=== PATIENT | male | born 1950 | race Caucasian/White ===

== ENCOUNTER 2024-01-26 13:29 | Outpatient (CLI) | payer MEDICARE, BC, SELFPAY ==
--- OUTSIDE RECORDS SUMMARY | 2024-02-03 09:17 | XMS_ITS | Continuity of Care Document ---
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 It does not include entries that were removed or entered in error. Problem Status Onset Date Problem Type Date of Resolution Comments Source Alcohol abuse Active Condition [facility] Elevated blood pressure reading without diagnosis of hypertension Active Condition Dec 21, 2022 Entered By: KATHY JUAREZ Comment: White coat hypertension. BP consistently at goal at home. [facility] - Hyperlipidemia Active Condition [facility] Tremor Active Condition [facility] Diagnosis: ICD-10-CM G25.0 Essential tremor Active Diagnosis [facility] Diagnosis: ICD-10-CM Z00.01 Encounter for general adult medical exam w abnormal findings Active Diagnosis [facility] Diagnosis: ICD-10-CM R03.0 Elevated blood-pressure reading, w/o diagnosis of htn Active Diagnosis [facility] Diagnosis: ICD-10-CM H90.3 Sensorineural hearing loss, bilateral Active Diagnosis [facility] Diagnosis: ICD-10-CM C44.319 Basal cell carcinoma of skin of other parts of face Active Diagnosis [facility] Medications Combined list of outpatient medications from [facility] and [facility] facilities.Medications provided include 1) outpatient medications from the last 15 months, and 2) patient-reported medications. Medication Details Route Status Patient Instructions Prescription Expires Prescription Number Last Dispense Date Ordering Provider Order Date Order Qty Source PROPRANOLOL HCL 120MG CAP,SA TAKE ONE CAPSULE BY MOUTH EVERY MORNING FOR TREMOR ORALLY DISCONT INUED 03/19/2024 [id number] Amaury RO 2022 90 [facility] PROPRANOLOL HCL 120MG CAP,SA TAKE ONE CAPSULE BY MOUTH EVERY MORNING FOR TREMOR ORALLY DISCONT INUED 09/21/2023 [id number] Amaury RO 2022 90 [facility] Immunizations Combined list of available immunizations from the [facility] of [facility] and [facility] facilities. Immunization Series Date Given Administered By Site Reaction Lot Number CVX Code Drug Last Model Department Supervisor Status Comments Source COVID-19 (MODERNA), MRNA, LNP-S, PF, 100 MCG/0.5ML DOSE OR 50 MCG/0.25ML DOSE 2 2020 207 complet ed [facility] COVID-19 (MODERNA), MRNA, LNP-S, PF, 100 MCG/0.5ML DOSE OR 50 MCG/0.25ML DOSE 1 2020 207 complet ed [facility] Results Combined list of recent chemistry, hematology and other laboratory results from [facility] and [facility], ranging from 15 months to all on record, depending upon the facility. Order Name Results Value Reference Range Date Interpretation Specimen Comments Source COMPREHE NSIVE METABOLI C PANEL+MG CREATININE [MASS/VOLU ME] IN SERUM OR PLASMA 0.9 0.7 - 1.2 12/21 Specimen Type: PLASMA No comment entered. Ordering Provider: AKTHY JUAREZ Report Released Date/Time: Nov 16, 2022 03:22 PM Reporting Lab: [facility] [address] Performing Lab: [facility] [address] [facility] COMPREHE NSIVE METABOLI C PANEL+MG UREA NITROGEN [MASS/VOLU ME] IN SERUM OR PLASMA 12 8 - 26 12/21 Specimen Type: PLASMA No comment entered. Ordering Provider: KATHY JUAREZ Report Released Date/Time: Nov 16, 2022 03:22 PM Reporting Lab: [facility] [address] Performing Lab: [facility] [address] [place] [facility] COMPREHE NSIVE METABOLI C PANEL+MG GLUCOSE [MASS/VOLU ME] IN SERUM OR PLASMA 91 70 - 100 12/21 Specimen Type: PLASMA No comment entered. Ordering Provider: KATHY JUAREZ Report Released Date/Time: Nov 16, 2022 03:22 PM Reporting Lab: [facility] [address] Performing Lab: [facility] [address] [place] [facility] COMPREHE NSIVE METABOLI C PANEL+MG SODIUM [MOLES/VOL UME] IN SERUM OR PLASMA 139 136 - 145 12/21 Specimen Type: PLASMA No comment entered. Ordering Provider: KATHY JUAREZ Report Released Date/Time: Nov 16, 2022 03:22 PM Reporting Lab: [facility] [address] Performing Lab: [facility] [address] [place] [facility] COMPREHE NSIVE METABOLI C PANEL+MG POTASSIUM [MOLES/VOL UME] IN SERUM OR PLASMA 4.0 3.5 - 5.1 12/21 Specimen Type: PLASMA No comment entered. Ordering Provider: KATHY JUAREZ Report Released Date/Time: Nov 16, 2022 03:22 PM Reporting Lab: [facility] [address] Performing Lab: [facility] [address] [place] [facility] COMPREHE NSIVE METABOLI C PANEL+MG CHLORIDE [MOLES/VOL UME] IN SERUM OR PLASMA 105 98 - 107 12/21 Specimen Type: PLASMA No comment entered. Ordering Provider: KATHY JUAREZ Report Released Date/Time: Nov 16, 2022 03:22 PM Reporting Lab: [facility] [address] Performing Lab: [facility] [address] [place] [facility] COMPREHE NSIVE METABOLI C PANEL+MG CARBON DIOXIDE, TOTAL [MOLES/VOL UME] IN SERUM OR PLASMA 25 22 - 29 12/21 Specimen Type: PLASMA No comment entered. Ordering Provider: KATHY JUAREZ Report Released Date/Time: Nov 16, 2022 03:22 PM Reporting Lab: [facility] [address] Performing Lab: [facility] [address] [place] [facility] COMPREHE NSIVE METABOLI C PANEL+MG CALCIUM [MASS/VOLU ME] IN SERUM OR PLASMA 10.0 8.4 - 10.2 12/21 Specimen Type: PLASMA No comment entered. Ordering Provider: KATHY JUAREZ Report Released Date/Time: Nov 16, 2022 03:22 PM Reporting Lab: [facility] [address] Performing Lab: [facility] [address] [place] [facility] COMPREHE NSIVE METABOLI C PANEL+MG PROTEIN [MASS/VOLU ME] IN SERUM OR PLASMA 7.0 6.0 - 8.3 12/21 Specimen Type: PLASMA No comment entered. Ordering Provider: KATHY JUAREZ Report Released Date/Time: Nov 16, 2022 03:22 PM Reporting Lab: [facility] [address] Performing Lab: [facility] [address] [place] [facility] COMPREHE NSIVE METABOLI C PANEL+MG ALBUMIN [MASS/VOLU ME] IN SERUM OR PLASMA 4.1 3.5 - 5.2 12/21 Specimen Type: PLASMA No comment entered. Ordering Provider: KATHY JUAREZ Report Released Date/Time: Nov 16, 2022 03:22 PM Reporting Lab: [facility] [address] Performing Lab: [facility] [address] [place] [facility] COMPREHE NSIVE METABOLI C PANEL+MG BILIRUBIN. TOTAL [MASS/VOLU ME] IN SERUM OR PLASMA 0.9 0.2 - 1.2 12/21 Specimen Type: PLASMA No comment entered. Ordering Provider: KATHY JUAREZ Report Released Date/Time: Nov 16, 2022 03:22 PM Reporting Lab: [facility] [address] Performing Lab: [facility] [address] [place] [facility] COMPREHE NSIVE METABOLI C PANEL+MG MAGNESIUM [MASS/VOLU ME] IN SERUM OR PLASMA 2.0 1.6 - 2.6 12/21 Specimen Type: PLASMA No comment entered. Ordering Provider: KATHY JUAREZ Report Released Date/Time: Nov 16, 2022 03:22 PM Reporting Lab: [facility] [address] Performing Lab: [facility] [address] [place] [facility] COMPREHE NSIVE METABOLI C PANEL+MG ANION GAP IN SERUM OR PLASMA 9 5 - 15 12/21 Specimen Type: PLASMA No comment entered. Ordering Provider: KATHY JUAREZ Report Released Date/Time: Nov 16, 2022 03:22 PM Reporting Lab: [facility] [address] Performing Lab: [facility] [address] [place] [facility] COMPREHE NSIVE METABOLI C PANEL+MG ALKALINE PHOSPHATAS E [ENZYMATIC ACTIVITY/V OLUME] IN SERUM OR PLASMA 97 40 - 150 12/21 Specimen Type: PLASMA No comment entered. Ordering Provider: KATHY JUAREZ Report Released Date/Time: Nov 16, 2022 03:22 PM Reporting Lab: [facility] [address] Performing Lab: [facility] [address] [place] [facility] COMPREHE NSIVE METABOLI C PANEL+MG ALANINE AMINOTRANS FERASE [ENZYMATIC ACTIVITY/V OLUME] IN SERUM OR PLASMA 30 <55 - 55 12/21 Specimen Type: PLASMA No comment entered. Ordering Provider: KATHY JUAREZ Report Released Date/Time: Nov 16, 2022 03:22 PM Reporting Lab: [facility] [address] Performing Lab: [facility] [address] [place] [facility] COMPREHE NSIVE METABOLI C PANEL+MG ASPARTATE AMINOTRANS FERASE [ENZYMATIC ACTIVITY/V OLUME] IN SERUM OR PLASMA 38 <34 - 34 12/21 H Specimen Type: PLASMA No comment entered. Ordering Provider: KATHY JUAREZ Report Released Date/Time: Nov 16, 2022 03:22 PM Reporting Lab: [facility] [address] Performing Lab: [facility] [address] [place] [facility] COMPREHE NSIVE METABOLI C PANEL+MG GLOMERULAR FILTRATION RATE/1.73 SQ M.PREDICTE D [VOLUME RATE/AREA] IN SERUM, PLASMA OR BLOOD BY CREATININE -BASED FORMULA (CKD-EPI) 90 60 12/21 Specimen Type: PLASMA No comment entered. Ordering Provider: KATHY JUAREZ Report Released Date/Time: Nov 16, 2022 03:22 PM Reporting Lab: [facility] [address] Performing Lab: [facility] [address] [place] [facility] AST/SGOT ASPARTATE AMINOTRANS FERASE [ENZYMATIC ACTIVITY/V OLUME] IN SERUM OR PLASMA 47 <34 - 34 11/16 H Specimen Type: PLASMA No comment entered. Ordering Provider: JULIO PELLETIER Report Released Date/Time: May 16, 2022 05:04 PM Reporting Lab: [facility] [address] Performing Lab: [facility] [address] [place] [facility] ALT/SGPT ALANINE AMINOTRANS FERASE [ENZYMATIC ACTIVITY/V OLUME] IN SERUM OR PLASMA 40 <55 - 55 11/16 Specimen Type: PLASMA No comment entered. Ordering Provider: JULIO PELLETIER Report Released Date/Time: May 16, 2022 05:04 PM Reporting Lab: [facility] [address] Performing Lab: [facility] [address] [place] [facility] GAMMA GTP GAMMA GLUTAMYL TRANSFERAS E [ENZYMATIC ACTIVITY/V OLUME] IN SERUM OR PLASMA 69 <64 - 64 11/16 H Specimen Type: PLASMA No comment entered. Ordering Provider: JULIO PELLETIER Report Released Date/Time: May 16, 2022 05:04 PM Reporting Lab: [facility] [address] Performing Lab: [facility] [address] [place] [facility] OCCULT BLOOD FIT X1 SCREEN HEMOGLOBIN .GASTROINT ESTINAL.LO WER [PRESENCE] IN STOOL BY IMMUNOASSA Y --1ST SPECIMEN Negative 05/21 Specimen Type: FECES No comment entered. Ordering Provider: JULIO PELLETIER Report Released Date/Time: May 16, 2022 03:08 PM Reporting Lab: [facility] [address] Performing Lab: [facility] [address] [place] [facility] COMPREHE NSIVE METABOLI C PANEL+MG CREATININE [MASS/VOLU ME] IN SERUM OR PLASMA 0.9 0.7 - 1.2 05/16 Specimen Type: PLASMA No comment entered. Ordering Provider: JULIO PELLETIER Report Released Date/Time: May 16, 2022 03:08 PM Reporting Lab: [facility] [address] Performing Lab: [facility] [address] [place] [facility] COMPREHE NSIVE METABOLI C PANEL+MG UREA NITROGEN [MASS/VOLU ME] IN SERUM OR PLASMA 9 8 - 26 05/16 Specimen Type: PLASMA No comment entered. Ordering Provider: JULIO PELLETIER Report Released Date/Time: May 16, 2022 03:08 PM Reporting Lab: [facility] [address] Performing Lab: [facility] [address] [place] [facility] COMPREHE NSIVE METABOLI C PANEL+MG GLUCOSE [MASS/VOLU ME] IN SERUM OR PLASMA 101 70 - 100 05/16 H Specimen Type: PLASMA No comment entered. Ordering Provider: JULIO PELLETIER Report Released Date/Time: May 16, 2022 03:08 PM Reporting Lab: [facility] [address] Performing Lab: [facility] [address] [place] [facility] COMPREHE NSIVE METABOLI C PANEL+MG SODIUM [MOLES/VOL UME] IN SERUM OR PLASMA 138 136 - 145 05/16 Specimen Type: PLASMA No comment entered. Ordering Provider: JULIO PELLETIER Report Released Date/Time: May 16, 2022 03:08 PM Reporting Lab: [facility] [address] Performing Lab: [facility] [address] [place] [facility] COMPREHE NSIVE METABOLI C PANEL+MG POTASSIUM [MOLES/VOL UME] IN SERUM OR PLASMA 4.1 3.5 - 5.1 05/16 Specimen Type: PLASMA No comment entered. Ordering Provider: JULIO PELLETIER Report Released Date/Time: May 16, 2022 03:08 PM Reporting Lab: [facility] [address] Performing Lab: [facility] [address] [place] [facility] COMPREHE NSIVE METABOLI C PANEL+MG CHLORIDE [MOLES/VOL UME] IN SERUM OR PLASMA 101 98 - 107 05/16 Specimen Type: PLASMA No comment entered. Ordering Provider: JULIO PELLETIER Report Released Date/Time: May 16, 2022 03:08 PM Reporting Lab: [facility] [address] Performing Lab: [facility] [address] [place] [facility] COMPREHE NSIVE METABOLI C PANEL+MG CARBON DIOXIDE, TOTAL [MOLES/VOL UME] IN SERUM OR PLASMA 25 22 - 29 05/16 Specimen Type: PLASMA No comment entered. Ordering Provider: JULIO PELLETIER Report Released Date/Time: May 16, 2022 03:08 PM Reporting Lab: [facility] [address] Performing Lab: [facility] [address] [place] [facility] COMPREHE NSIVE METABOLI C PANEL+MG CALCIUM [MASS/VOLU ME] IN SERUM OR PLASMA 10.1 8.4 - 10.2 05/16 Specimen Type: PLASMA No comment entered. Ordering Provider: JULIO PELLETIER Report Released Date/Time: May 16, 2022 03:08 PM Reporting Lab: [facility] [address] Performing Lab: [facility] [address] [place] [facility] COMPREHE NSIVE METABOLI C PANEL+MG PROTEIN [MASS/VOLU ME] IN SERUM OR PLASMA 7.6 6.0 - 8.3 05/16 Specimen Type: PLASMA No comment entered. Ordering Provider: JULIO PELLETIER Report Released Date/Time: May 16, 2022 03:08 PM Reporting Lab: [facility] [address] Performing Lab: [facility] [address] [place] [facility] COMPREHE NSIVE METABOLI C PANEL+MG ALBUMIN [MASS/VOLU ME] IN SERUM OR PLASMA 4.5 3.5 - 5.2 05/16 Specimen Type: PLASMA No comment entered. Ordering Provider: JULIO PELLETIER Report Released Date/Time: May 16, 2022 03:08 PM Reporting Lab: [facility] [address] Performing Lab: [facility] [address] [place] [facility] COMPREHE NSIVE METABOLI C PANEL+MG BILIRUBIN. TOTAL [MASS/VOLU ME] IN SERUM OR PLASMA 1.2 0.2 - 1.2 05/16 Specimen Type: PLASMA No comment entered. Ordering Provider: JULIO PELLETIER Report Released Date/Time: May 16, 2022 03:08 PM Reporting Lab: [facility] [address] Performing Lab: [facility] [address] [place] [facility] COMPREHE NSIVE METABOLI C PANEL+MG MAGNESIUM [MASS/VOLU ME] IN SERUM OR PLASMA 2.0 1.6 - 2.6 05/16 Specimen Type: PLASMA No comment entered. Ordering Provider: JULIO PELLETIER Report Released Date/Time: May 16, 2022 03:08 PM Reporting Lab: [facility] [address] Performing Lab: [facility] [address] [place] [facility] COMPREHE NSIVE METABOLI C PANEL+MG ANION GAP IN SERUM OR PLASMA 12 5 - 15 05/16 Specimen Type: PLASMA No comment entered. Ordering Provider: JULIO PELLETIER Report Released Date/Time: May 16, 2022 03:08 PM Reporting Lab: [facility] [address] Performing Lab: [facility] [address] [place] [facility] COMPREHE NSIVE METABOLI C PANEL+MG ALKALINE PHOSPHATAS E [ENZYMATIC ACTIVITY/V OLUME] IN SERUM OR PLASMA 99 40 - 150 05/16 Specimen Type: PLASMA No comment entered. Ordering Provider: JULIO PELLETIER Report Released Date/Time: May 16, 2022 03:08 PM Reporting Lab: [facility] [address] Performing Lab: [facility] [address] [place] [facility] COMPREHE NSIVE METABOLI C PANEL+MG ALANINE AMINOTRANS FERASE [ENZYMATIC ACTIVITY/V OLUME] IN SERUM OR PLASMA 54 <55 - 55 05/16 Specimen Type: PLASMA No comment entered. Ordering Provider: JULIO PELLETIER Report Released Date/Time: May 16, 2022 03:08 PM Reporting Lab: [facility] [address] Performing Lab: [facility] [address] [place] [facility] COMPREHE NSIVE METABOLI C PANEL+MG ASPARTATE AMINOTRANS FERASE [ENZYMATIC ACTIVITY/V OLUME] IN SERUM OR PLASMA 53 <34 - 34 05/16 H Specimen Type: PLASMA No comment entered. Ordering Provider: JULIO PELLETIER Report Released Date/Time: May 16, 2022 03:08 PM Reporting Lab: [facility] [address] Performing Lab: [facility] [address] [place] [facility] COMPREHE NSIVE METABOLI C PANEL+MG GLOMERULAR FILTRATION RATE/1.73 SQ M.PREDICTE D [VOLUME RATE/AREA] IN SERUM, PLASMA OR BLOOD BY CREATININE -BASED FORMULA (CKD-EPI) 90 60 05/16 Specimen Type: PLASMA No comment entered. Ordering Provider: JULIO PELLETIER Report Released Date/Time: May 16, 2022 03:08 PM Reporting Lab: [facility] [address] Performing Lab: [facility] [address] [facility] CBC & DIFF LEUKOCYTES [#/VOLUME] IN BLOOD BY AUTOMATED COUNT 8.05 4.0 - 11.0 05/16 Specimen Type: BLOOD Comment: Automated Differentia l Performed Ordering Provider: JULIO PELLETIER Report Released Date/Time: May 16, 2022 03:08 PM Reporting Lab: [facility] [address] Performing Lab: [facility] [address] [place] [facility] CBC & DIFF ERYTHROCYT ES [#/VOLUME] IN BLOOD BY AUTOMATED COUNT 5.05 4.6 - 6.2 05/16 Specimen Type: BLOOD Comment: Automated Differentia l Performed Ordering Provider: JULIO PELLETIER Report Released Date/Time: May 16, 2022 03:08 PM Reporting Lab: [facility] [address] Performing Lab: [facility] [address] [place] [facility] CBC & DIFF HEMOGLOBIN [MASS/VOLU ME] IN BLOOD 17.5 13.5 - 17.9 05/16 Specimen Type: BLOOD Comment: Automated Differentia l Performed Ordering Provider: JULIO PELLETIER Report Released Date/Time: May 16, 2022 03:08 PM Reporting Lab: [facility] [address] Performing Lab: [facility] [address] [place] [facility] CBC & DIFF HEMATOCRIT [VOLUME FRACTION] OF BLOOD BY AUTOMATED COUNT 49.1 41 - 54 05/16 Specimen Type: BLOOD Comment: Automated Differentia l Performed Ordering Provider: JULIO PELLETIER Report Released Date/Time: May 16, 2022 03:08 PM Reporting Lab: [facility] [address] Performing Lab: [facility] [address] [place] [facility] CBC & DIFF MCV [ENTITIC VOLUME] BY AUTOMATED COUNT 97.2 80 - 100 05/16 Specimen Type: BLOOD Comment: Automated Differentia l Performed Ordering Provider: JULIO PELLETIER Report Released Date/Time: May 16, 2022 03:08 PM Reporting Lab: [facility] [address] Performing Lab: [facility] [address] [place] [facility] CBC & DIFF MCH [ENTITIC MASS] BY AUTOMATED COUNT 34.7 27 - 33 05/16 H Specimen Type: BLOOD Comment: Automated Differentia l Performed Ordering Provider: JULIO PELLETIER Report Released Date/Time: May 16, 2022 03:08 PM Reporting Lab: [facility] [address] Performing Lab: [facility] [address] [place] [facility] CBC & DIFF MCHC [MASS/VOLU ME] BY AUTOMATED COUNT 35.6 32.0 - 37.5 05/16 Specimen Type: BLOOD Comment: Automated Differentia l Performed Ordering Provider: JULIO PELLETIER Report Released Date/Time: May 16, 2022 03:08 PM Reporting Lab: [facility] [address] Performing Lab: [facility] [address] [place] [facility] CBC & DIFF PLATELETS [#/VOLUME] IN BLOOD BY AUTOMATED COUNT 224 150 - 400 05/16 Specimen Type: BLOOD Comment: Automated Differentia l Performed Ordering Provider: JULIO PELLETIER Report Released Date/Time: May 16, 2022 03:08 PM Reporting Lab: [facility] [address] Performing Lab: [facility] [address] [place] [facility] CBC & DIFF PLATELET MEAN VOLUME [ENTITIC VOLUME] IN BLOOD BY AUTOMATED COUNT 8.7 7.4 - 10.4 05/16 Specimen Type: BLOOD Comment: Automated Differentia l Performed Ordering Provider: JULIO PELLETIER Report Released Date/Time: May 16, 2022 03:08 PM Reporting Lab: [facility] [address] Performing Lab: [facility] [address] [place] [facility] CBC & DIFF NEUTROPHIL S/100 LEUKOCYTES IN BLOOD BY MANUAL COUNT 74.6 05/16 Specimen Type: BLOOD Comment: Automated Differentia l Performed Ordering Provider: JULIO PELLETIER Report Released Date/Time: May 16, 2022 03:08 PM Reporting Lab: [facility] [address] Performing Lab: [facility] [address] [place] [facility] CBC & DIFF LYMPHOCYTE S/100 LEUKOCYTES IN BLOOD BY MANUAL COUNT 12.5 05/16 Specimen Type: BLOOD Comment: Automated Differentia l Performed Ordering Provider: JULIO PELLETIER Report Released Date/Time: May 16, 2022 03:08 PM Reporting Lab: [facility] [address] Performing Lab: [facility] [address] [place] [facility] CBC & DIFF MONOCYTES/ 100 LEUKOCYTES IN BLOOD BY AUTOMATED COUNT 9.9 05/16 Specimen Type: BLOOD Comment: Automated Differentia l Performed Ordering Provider: JULIO PELLETIER Report Released Date/Time: May 16, 2022 03:08 PM Reporting Lab: [facility] [address] Performing Lab: [facility] [address] [place] [facility] CBC & DIFF EOSINOPHIL S/100 LEUKOCYTES IN BLOOD BY AUTOMATED COUNT 1.5 05/16 Specimen Type: BLOOD Comment: Automated Differentia l Performed Ordering Provider: JULIO PELLETIER Report Released Date/Time: May 16, 2022 03:08 PM Reporting Lab: [facility] [address] Performing Lab: [facility] [address] [place] [facility] CBC & DIFF BASOPHILS/ 100 LEUKOCYTES IN BLOOD BY MANUAL COUNT 1.0 05/16 Specimen Type: BLOOD Comment: Automated Differentia l Performed Ordering Provider: JULIO PELLETIER Report Released Date/Time: May 16, 2022 03:08 PM Reporting Lab: [facility] [address] Performing Lab: [facility] [address] [place] [facility] CBC & DIFF ERYTHROCYT E DISTRIBUTI ON WIDTH [RATIO] BY AUTOMATED COUNT 12.0 11.5 - 14.5 05/16 Specimen Type: BLOOD Comment: Automated Differentia l Performed Ordering Provider: JULIO PELLETIER Report Released Date/Time: May 16, 2022 03:08 PM Reporting Lab: [facility] [address] Performing Lab: [facility] [address] [place] [facility] CBC & DIFF LYMPHOCYTE S [#/VOLUME] IN BLOOD BY AUTOMATED COUNT 1.01 1.0 - 4.0 05/16 Specimen Type: BLOOD Comment: Automated Differentia l Performed Ordering Provider: JULIO PELLETIER Report Released Date/Time: May 16, 2022 03:08 PM Reporting Lab: [facility] [id number] Performing Lab: [facility] [address] [place] [facility] CBC & DIFF MONOCYTES [#/VOLUME] IN BLOOD BY AUTOMATED COUNT 0.80 0.1 - 1.0 05/16 Specimen Type: BLOOD Comment: Automated Differentia l Performed Ordering Provider: JULIO PELLETIER Report Released Date/Time: May 16, 2022 03:08 PM Reporting Lab: [facility] [id number] Performing Lab: [facility] [address] [place] [facility] CBC & DIFF NEUTROPHIL S [#/VOLUME] IN BLOOD BY AUTOMATED COUNT 6.00 2.0 - 7.7 05/16 Specimen Type: BLOOD Comment: Automated Differentia l Performed Ordering Provider: JULIO PELLETIER Report Released Date/Time: May 16, 2022 03:08 PM Reporting Lab: [facility] [address] Performing Lab: [facility] [address] [place] [facility] CBC & DIFF EOSINOPHIL S [#/VOLUME] IN BLOOD BY AUTOMATED COUNT 0.12 0 - 0.5 05/16 Specimen Type: BLOOD Comment: Automated Differentia l Performed Ordering Provider: JULIO PELLETIER Report Released Date/Time: May 16, 2022 03:08 PM Reporting Lab: [facility] [address] Performing Lab: [facility] [address] [place] [facility] CBC & DIFF BASOPHILS [#/VOLUME] IN BLOOD BY AUTOMATED COUNT 0.08 0 - 0.2 05/16 Specimen Type: BLOOD Comment: Automated Differentia l Performed Ordering Provider: JULIO PELLETIER Report Released Date/Time: May 16, 2022 03:08 PM Reporting Lab: [facility] [address] Performing Lab: [facility] [address] [place] [facility] CBC & DIFF IG(META,MY KRYSTEN,PRO) 0.5 05/16 Specimen Type: BLOOD Comment: Automated Differentia l Performed Ordering Provider: JULIO PELLETIER Report Released Date/Time: May 16, 2022 03:08 PM Reporting Lab: [facility] [address] Performing Lab: [facility] [address] [place] [facility] CBC & DIFF IMMATURE GRANULOCYT ES [PRESENCE] IN BLOOD BY AUTOMATED COUNT 0.04 0 - 0.1 05/16 Specimen Type: BLOOD Comment: Automated Differentia l Performed Ordering Provider: JLUIO PELLETIER Report Released Date/Time: May 16, 2022 03:08 PM Reporting Lab: [facility] [address] Performing Lab: [facility] [address] [place] [facility] TSH W/REFLEX TO FREE T4 THYROTROPI N [UNITS/VOL UME] IN SERUM OR PLASMA 2.28 0.35 - 4.94 05/16 Specimen Type: PLASMA No comment entered. Ordering Provider: JULIO PELLETIER Report Released Date/Time: May 16, 2022 03:08 PM Reporting Lab: [facility] [address] Performing Lab: [facility] [address] [place] [facility] HIV AG/AB SCREEN HIV 1+2 AB+HIV1 P24 AG [PRESENCE] IN SERUM OR PLASMA BY IMMUNOASSA Y NEGATIVE 05/16 Specimen Type: SERUM No comment entered. Ordering Provider: JULIO PELLETIER Report Released Date/Time: May 16, 2022 03:08 PM Reporting Lab: [facility] [address] Performing Lab: [facility] [address] [place] [facility] HEPATITI S SEROLOGY PANEL HEPATITIS B VIRUS SURFACE AG [PRESENCE] IN SERUM NEGATIVE 05/16 Specimen Type: SERUM No comment entered. Ordering Provider: JULIO PELLETIER Report Released Date/Time: May 16, 2022 03:08 PM Reporting Lab: [facility] [address] Performing Lab: [facility] [address] [place] [facility] HEPATITI S SEROLOGY PANEL HEPATITIS B VIRUS CORE AB [PRESENCE] IN SERUM NEGATIVE 05/16 Specimen Type: SERUM No comment entered. Ordering Provider: JULIO PELLETIER Report Released Date/Time: May 16, 2022 03:08 PM Reporting Lab: [facility] [address] Performing Lab: [facility] [address] [place] [facility] HEPATITI S SEROLOGY PANEL HEPATITIS B VIRUS SURFACE AB [UNITS/VOL UME] IN SERUM <3.31 05/16 Specimen Type: SERUM No comment entered. Ordering Provider: JULIO PELLETIER Report Released Date/Time: May 16, 2022 03:08 PM Reporting Lab: [facility] [address] Performing Lab: [facility] [address] [place] [facility] HEPATITI S SEROLOGY PANEL HEPATITIS C VIRUS AB [PRESENCE] IN SERUM NEGATIVE 05/16 Specimen Type: SERUM No comment entered. Ordering Provider: JULIO PELLETIER Report Released Date/Time: May 16, 2022 03:08 PM Reporting Lab: [facility] [address] Performing Lab: [facility] [address] [place] [facility] HEPATITI S SEROLOGY PANEL HEPATITIS A VIRUS IGM AB [PRESENCE] IN SERUM NEGATIVE 05/16 Specimen Type: SERUM No comment entered. Ordering Provider: JULIO PELLETIER Report Released Date/Time: May 16, 2022 03:08 PM Reporting Lab: [facility] [address] Performing Lab: [facility] [address] [place] [facility] HEPATITI S SEROLOGY PANEL HEPATITIS A VIRUS IGG AB [PRESENCE] IN SERUM NEGATIVE 05/16 Specimen Type: SERUM No comment entered. Ordering Provider: JULIO PELLETIER Report Released Date/Time: May 16, 2022 03:08 PM Reporting Lab: [facility] [address] Performing Lab: [facility] [address] [place] [facility] Vital Signs Combined list of inpatient and outpatient Vital Signs from Department of Defense and Veterans Affairs, ranging from 12 months to all on record, depending upon the facility. Vital Sign Value Date Comments Source Encounters Combined list of: 1) Encounters from Department of Veterans Affairs facilities going back up to thelast 18 months. 2) Encounters from the Department of [facility] facilities going back up to 280 months. 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
POST,CRYST AL L 08/20 [facility] Outpatient Encounter [id number] 09/05 [facility] OFFICE O/P EST HI 40-54 MIN [id number] Diagnos is: ICD-10- CM G25.0 Essenti al tremor< br/> SHARAN RO UREMarina E 09[facility] Out[facility] Encounter [id number] 09/21 [facility] CONFORMITY EVALUATION [id number] Diagnos is: ICD-10- CM H90.3 Sensori neural hearing loss, bilater al
ANDJAYEDGARDO FISHER DAVE M 09/27 [facility] Outpatient Encounter [id number] 10/17 [facility] OFFICE O/P EST LOW 20-29 MIN [id number] Diagnos is: ICD-10- CM R03.0 Elevate d blood-p ressure reading , w/o diagnos is of htn<br/ > MARIZA JUAREZ N W 11/16 [facility] Outpatient Encounter [id number] 11/16 [facility] OFFICE O/P EST MOD 30-39 MIN [id number] Diagnos is: ICD-10- CM Z00.01 Encount er for general adult medical exam w abnorma l finding s
MARIZA JUAREZ N W 12/21 [facility] Outpatient Encounter [id number] REN,GL ORIA E 03/18 [facility] Outpatient Encounter [id number] REN,GL ORIA E 03/18 [facility] OFFICE O/P EST LOW 20-29 MIN [id number] Diagnos is: ICD-10- CM G25.0 Essenti al tremor< br/> SHARAN RO UREMarina E 03/19 [facility] Outpatient Encounter [id number] 09/20 [facility] Social History Combined list of available smoking, tobacco, and other social history from Department of Defense and Veterans Affairs facilities. Social History Type Response Date Comment [facility] e Tobacco smoking status [facility]-TOBACCO FORMER USER 05/16/2022 [facility] History of tobacco use [place]-TOBACCO QUIT 1 5 YRS OR MORE 05/16/2022 [facility]
== END 2024-01-26 13:30 | disposition home or self-care (01) ==
LOC: AMB 02-03 09:16
PROVIDERS: Visit Provider Family Medicine
DX: I46.9 Cardiac arrest, cause unspecified (principal)